=== PATIENT | female | born 2000 | race African-American/Black ===

== ENCOUNTER 2025-06-29 09:24 | Outpatient (AMB) | payer BC, SELFPAY ==
--- NOTE | 2025-06-29 09:28 | A.OFFPC_ITS ---
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 Accompanied by: Self / Same As Patient Allergies No Known Allergies Allergy (Verified 06/29/25 09:29) Medication List - Last Reconciled 06/29/25 by ARTEMIO Rodriguez No Known Home Meds Tobacco use date assessed: 06/29/25 Dental Screening Dental Screen Date: 06/29/25 Did you have a dental visit in the last 12 months?: Yes Did you have a dental problem in the last 6 months where you did not have access to dental care?: No Was dental information given to patient?: Patient has dentist HPI Contact Worker Lithography establish care HPI Details Patient is a 25-year-old female presenting to [facility]. Accompanied by her . Previous PCP: In [place], Pastora Andrews Last visit: 07/2024 Last PE: same Specialist:no [facility] Past medical history: Tonsillectomy years ago Medications: Family HX: DM, Mother-side, uncle has a bone generative, mother and grandmother has been affected as well. Problem: She had no concerns today. Labs ordered to be completed and return in 7 weeks for physical/lab review. [facility] Surgical History Hx of tonsillectomy Family History (Updated 06/29/25 @ 10:18 by ARTEMIO Rodriguez) Mother Diabetes mellitus Degenerative disorder of bone Maternal Uncle Degenerative disorder of bone Maternal Grandmother Degenerative disorder of bone Social History Household Members: Spouse Both parents involved: No Caregiver staying overnight: No Housing: Apartment Alcohol intake: never Patient Tobacco Use Status: Never used Tobacco e-Cigarette/Vaping Use: Never Used service: No Current occupational status: employed Hearing needs: No Vision needs: No Female Reproductive History Menstrual Date of last menstrual period: 06/06/25 control method: none Questionnaire PHQ-9 Over the last 2 weeks, how often have you been bothered by any of the following problems? 1. Little interest or pleasure in doing things: not at all 2. Feeling down, depressed, or hopeless: several days 3. Trouble falling or staying asleep, or sleeping too much: several days 4. Feeling tired or having little energy: several days 5. Poor appetite or overeating: not at all 6. Feeling bad about yourself - or that you are a failure or have let yourself or your family down: not at all 7. Trouble concentrating on things, such as reading the newspaper or watching television: not at all 8. Moving or speaking so slowly that other people could have noticed. Or the opposite - being so fidgety or restless that you have been moving around a lot more than usual: not at all 9. Thoughts that you would be better off or of hurting yourself in some way: not at all Total score: 3 Depression Screening Interpretation: Negative Depression Screening Done: Yes 75283 - PHQ-9 Billing: Yes Source: Developed by Drs. Fidel Ellison, Suyapa oCles, Hernandez Del Toro and colleagues, with an educational flakita from [employer]). Thrive Questionnaire Date Thrive assessed: 06/29/25 I am a: Patient What is your living situation today?: I choose not to answer this question Within the past 12 months, did the food you bought not last and you didn't have the money to get more?: I choose not to answer this question Within the past 12 months, did you worry whether your food would run out before you got money to buy more?: Never true Do you have trouble paying for medicines?: No Do you have trouble getting transportation to medical appointments?: No Do you have trouble paying your heating and electricity bill?: I choose not to answer this question Do you have trouble taking care of your child, family member or friend?: I choose not to answer this question Do you have trouble with day-to-day activities such as bathing, preparing meals, shopping, managing finances, etc.?: No Are you currently unemployed and looking for a job?: No Are you interested in more education?: Yes Please select the resources that you would like help with: Housing/Detention Currently or been in a relationship where the following occur: No concerns reported THRIVE Score: 0 AUDIT C Alcohol Use Questionnaire (AUDIT-C) 1. How often do you have a drink containing alcohol?: Never 2. How many drinks containing alcohol do you have on a typical day when you are drinking?: 1 or 2 3. How often do you have six or more drinks on one occasion?: Never Total Score: 0 BLAKE-7 AMB Questionnaire BLAKE-7 Date BLAEK - 7 assessed: 06/29/25 Feeling nervous, anxious, or on edge: 1 = Several days Not being able to stop or control worryin = Not at all Worrying too much about different things: 1 = Several days Trouble relaxin = Not at all Being so restless that it is hard to sit still: 0 = Not at all Becoming easily annoyed or irritable: 0 = Not at all Feeling afraid as if something awful might happen: 0 = Not at all Total BLAKE-7 score (0-4 normal; 5-9 mild; 10-14 moderate; 15-21 severe): 2 Source: Developed by Drs. Fidel Ellison, Suyapa Coles, Hernandez Del Toro and colleagues, with an educational flakita from [employer]). BLAKE-7 Assessment Billing BLAKE-7 Assessment Tool: BLAKE-7 Assessment 59736 Review of Systems Const Denies headache(s) Eyes Denies loss of vision ENT Denies vertigo, Denies dizziness, Denies headache(s) and Denies sore throat Card Denies chest pain, Denies leg edema and Denies lightheadedness Resp Denies cough, Denies hemoptysis and Denies wheezing GI Denies abdominal pain, Denies melena, Denies constipation, Denies diarrhea and Denies vomiting Denies urinary frequency, Denies dysuria and Denies urinary urgency Musc Denies arthralgias, Denies joint swelling, Denies numbness and Denies tingling Neuro Denies Abnormal speech present, Denies behavioral changes, Denies vertigo, Denies dizziness, Denies headache(s), Denies loss of vision, Denies memory loss, Denies numbness and Denies tingling Psych Denies anxiety, Denies behavioral changes, Denies depression, Denies memory loss and Denies panic attacks Dc/Lymph Denies easy bleeding and Denies easy bruising Aller/Immun Denies wheezing Physical exam (Primary Care) Vital Signs: Last Vital Signs Pulse 99 06/29/25 09:32 BP 116/70 06/29/25 09:32 Pulse Ox 99 06/29/25 09:32 Tobacco/Smoking Status: Tobacco use Status Tobacco use date assessed 06/29/25 06/29/25 09:39 Patient Tobacco Use Status Never used Tobacco 06/29/25 09:39 e-Cigarette/Vaping Use Never Used 06/29/25 09:39 PHQ-9: PHQ-9 Score PHQ-9: Total score 3 06/29/25 09:39 Depression Screening Interpretation: Negative Thrive Assessment: Date of Thrive Assessment Date Thrive assessed 06/29/25 06/29/25 09:39 Currently or been in a relationship where the following occur: No concerns reported Const General: healthy appearing, no acute distress, alert and awake Nutritional Appearance: well nourished Orientation/consciousness: oriented to person, oriented to place and oriented to time HENMT Ears: TM's normal bilaterally General nose exam: Normal nasal mucous membranes and turbinates present Eyes Conjunctivae: conjunctivae normal Sclerae: sclerae normal Pupils: Equal, round and reactive pupils present Neck Neck: Yes no lymphadenopathy and Yes no JVD Thyroid: Thyroid normal Carotids: no bruits Resp Effort & Inspection: normal respiratory effort and not tachypneic Auscultation: no crackles, no rales, no rhonchi and no wheezes Cardio Rate: regular rate Rhythm: regular rhythm Heart sounds: no murmurs and normal S1 and S2 GI Palpation (GI): Soft to palpation, nontender, no hepatomegaly and no splenomegaly Auscultation: normal bowel sounds Skin General skin exam: no rashes or lesions noted and dry skin Neuro General: oriented to person, oriented to place and oriented to time Cranial nerves: Yes Equal, round and reactive pupils present Speech: No Abnormal speech present Gait exam (Neuro): Normal gait present Motor exam (neuro): no tremor noted Extrem Right upper extremity: full ROM Left upper extremity: full ROM Right lower extremity: full ROM; no edema Left lower extremity: full ROM; no edema Psych Mental Status: mental status grossly normal Speech and movement: Normal speech and movement present Affect: normal affect Attitude: cooperative Thought process: Normal thought process present Coding Level of Care Code New Pt Level 3 (42116) Diagnoses Encounter to establish care with new provider Z76.89 Excessive cerumen in both ear canals H61.23 Additional Codes BLAKE-7 Assessment Billing - BLAKE-7 Assessment Tool: BLAKE-7 Assessment 71350 ([id number]) PHQ-9 - 86523 - PHQ-9 Billing: Yes ([id number]) Time Spent (min) 36 Assessment & Plan Assessment & Plan (1) Encounter to establish care with new provider: Code(s): Z76.89 - Persons encountering health services in other specified circumstances Category: Medical (2) Excessive cerumen in both ear canals: Code(s): H61.23 - Impacted cerumen, bilateral Category: Medical Plan The patient will undergo routine laboratory tests to assess kidney and liver function, as well as cholesterol levels. These tests require fasting, and the patient will return for a follow-up visit to review the results. For earwax buildup, the patient was advised on the use of [id number] ear drops to soften the wax, followed by warm water irrigation to remove it. Majority of cerumen build up was removed with lighted curette without any co ncerns of discomfort. Patient was informed and verbally consented to the use of an ambient scribe for clinic note documentation during this visit. Orders: Orders Lipid Panel Today Z00.00 - Encounter for general adult medical examination without abnormal findings TSH reflex Free T4 Today Z00.00 - Encounter for general adult medical examination without abnormal findings Vitamin D 25-OH Total Today Z00.00 - Encounter for general adult medical examination without abnormal findings Complete Blood Count Auto Diff Today Z00.00 - Encounter for general adult medical examination without abnormal findings Comprehensive Andreas. Panel Fast Today Z00.00 - Encounter for general adult medical examination without abnormal findings UA CC w/rflx Micro + Cult Today Z00.00 - Encounter for general adult medical examination without abnormal findings
[2025-06-29 09:32] VITALS: BP 116/70; PULSE 99; RESP 18; TEMP 37.6; O2SAT 99
== END 2025-06-29 10:12 | disposition home or self-care (01) ==
LOC: HO.HMCH 09:24
DX: Z76.89 Persons encountering health services in other specified circumstances (principal); H61.23 Impacted cerumen, bilateral

== ENCOUNTER → 2025-06-29 09:24 | Outpatient (BNVA) | payer BC, SELFPAY | DX: H61.23 Impacted cerumen, bilateral (principal); Z76.89 Persons encountering health services in other specified circumstances | CPT/HCPCS: 96127 ==

== ENCOUNTER 2025-07-31 07:57 | Outpatient (REF) | payer BC, SELFPAY ==
[2025-07-31 08:24] LABS: MANUAL DIFF FLAG NO
[2025-07-31 08:37] LABS: Hematocrit 37.5 % (37.0-47.0); Hemoglobin 11.9 g/dl (12.0-16.0); Imm Gran Abs Auto 0.01 X10*3/uL (0.00-0.03); Imm Gran Pct Auto 0.2 % (0.0-0.4); Lymphocytes Absolute Auto 2.0 X10*3/uL (1.2-4.9); Mean Corpuscular HGB Conc 31.7 g/dl (31.0-35.0); Mean Corpuscular Hemoglobin 29.5 pg (27.0-33.0); Mean Corpuscular Volume 92.8 fL (80.0-98.0); NRBC Abs Auto 0.000 X10*3/uL (0.0-0.012); NRBC Pct Auto 0.0 /100WBC (0.0-0.2); Platelet Count 254 X10*3/uL (160-400); Red Blood Count 4.04 X10*6/uL (4.20-5.50); White Blood Count 6.3 X10*3/uL (4.8-10.8)
[2025-07-31 09:33] LABS: Alanine Aminotransferase 18 U/L (0-31); Albumin Level 4.4 g/dL (3.5-5.0); Alkaline Phosphatase 54 U/L (39-117); Anion Gap 10 (12-20); Aspartate Amino Transferase 27 U/L (5-31); Blood Urea Nitrogen 11 mg/dL (9-16); Calcium 9.3 mg/dL (8.4-10.2); Carbon Dioxide 26 mmol/L (22-29); Chloride 108 mmol/L (96-108); Cholesterol 154 mg/dL (<200); Estimated Glomerular Filt Rate > 60; HDL Cholesterol 55 mg/dL (>40); Potassium 4.1 mmol/L (3.3-5.1); Sodium 140 mmol/L (135-145); Total Protein 7.0 g/dL (6.5-8.0); Triglycerides 54 mg/dL (<150)
[2025-07-31 09:36] LABS: Appearance Urine Clear; Glucose Urine UA Negative (Negative); PH 5.5 (5.0-9.0); Specific Gravity - Urine 1.015 (1.005-1.025); UMIC TRIGGER UACC YES
== END 2025-07-31 07:58 | disposition home or self-care (01) ==
LOC: HO.LAB 07:57
DX: Z00.00 Encounter for general adult medical examination without abnormal findings (principal); Z13.6 Encounter for screening for cardiovascular disorders
CPT/HCPCS: 36415; 80053; 80061; 81001; 81003; 82306; 84443; 85025

== ENCOUNTER 2025-08-16 09:55 | Outpatient (AMB) | payer BC, SELFPAY ==
[2025-08-16 09:58] VITALS: BP 120/72; PULSE 69; RESP 18; TEMP 36.4; O2SAT 95; BMI 25.9
--- NOTE | 2025-08-16 09:58 | MHC.PC.OV ---
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 Accompanied by: Self / Same As Patient Allergies No Known Allergies Allergy (Verified 08/16/25 10:08) Medication List - Last Reconciled 08/16/25 by ARTEMIO Rodriguez No Known Home Meds Tobacco use date assessed: 08/16/25 Dental Screening Dental Screen Date: 08/16/25 Did you have a dental visit in the last 12 months?: Yes Did you have a dental problem in the last 6 months where you did not have access to dental care?: No Was dental information given to patient?: Patient has dentist HPI annual physical/lab review HPI Details Dentist: up to date Eye: up to date Snellen: Right: Left: Corrected vision: yes, glasses STI screening:n/a Colonoscopy:n/a Pap Smaer:up to date PHQ-9: Flu:no COVID: x2 Tdap: not sure of the last time, will hold off now. Diet:regular Exercise:exercises regularly The patient is a 25-year-old female presenting with a wellness check-up and review of laboratory results. The patient was found to have anemia, which was noted to be mild and possibly related to her menstrual cycle, as the blood test was conducted during her period. There was also a trace of blood in her urine, which could be attributed to the timing of the test. The laboratory results indicated a slight deficiency in Vitamin D, which is common due to insufficient sunlight exposure, especially during winter months. The patient was advised to take Vitamin D3 supplements to mitigate this deficiency. The patient reported no significant changes in her health since the last visit and confirmed that her Pap smear is up to date. She has received two COVID-19 vaccinations and a tetanus shot in 2021, which is valid for ten years. The patient exercises regularly, either by walking or going to the gym, and is not on any special diet. She wears glasses and has not had a colonoscopy, as she is considered too young for routine screening unless symptomatic. The patient was advised on managing ear wax buildup to prevent dizziness and earache, which could occur if the wax reaches the eardrum. PFSH Surgical History Hx of tonsillectomy Family History Mother Diabetes mellitus Degenerative disorder of bone Maternal Uncle Degenerative disorder of bone Maternal Grandmother Degenerative disorder of bone Social History Household Members: Spouse Both parents involved: No Caregiver staying overnight: No Housing: Apartment Alcohol intake: never Patient Tobacco Use Status: Never used Tobacco e-Cigarette/Vaping Use: Never Used service: No Current occupational status: employed Hearing needs: No Vision needs: No Questionnaire Thrive Questionnaire Date Thrive assessed: 06/22/25 I am a: Patient What is your living situation today?: I choose not to answer this question Within the past 12 months, did the food you bought not last and you didn't have the money to get more?: I choose not to answer this question Within the past 12 months, did you worry whether your food would run out before you got money to buy more?: Never true Do you have trouble paying for medicines?: No Do you have trouble getting transportation to medical appointments?: No Do you have trouble paying your heating and electricity bill?: I choose not to answer this question Do you have trouble taking care of your child, family member or friend?: I choose not to answer this question Do you have trouble with day-to-day activities such as bathing, preparing meals, shopping, managing finances, etc.?: No Are you currently unemployed and looking for a job?: No Are you interested in more education?: Yes Please select the resources that you would like help with: Housing/Intermediate Currently or been in a relationship where the following occur: No concerns reported THRIVE Score: 0 BLAKE-7 AMB Questionnaire BLAKE-7 Date BLAKE - 7 assessed: 06/29/25 Source: Developed by Drs. Fidel Ellison, Suyapa Coles, Hernandez Del Toro and colleagues, with an educational flakita from [employer]. Review of Systems Const Denies headache(s) Eyes Denies loss of vision ENT Denies vertigo, Denies dizziness, Denies headache(s) and Denies sore throat Card Denies chest pain, Denies leg edema and Denies lightheadedness Resp Denies cough, Denies hemoptysis and Denies wheezing GI Denies abdominal pain, Denies melena, Denies constipation, Denies diarrhea and Denies vomiting Denies urinary frequency, Denies dysuria and Denies urinary urgency Musc Denies arthralgias, Denies joint swelling, Denies numbness and Denies tingling Neuro Denies Abnormal speech present, Denies behavioral changes, Denies vertigo, Denies dizziness, Denies headache(s), Denies loss of vision, Denies memory loss, Denies numbness and Denies tingling Psych Denies anxiety, Denies behavioral changes, Denies depression, Denies memory loss and Denies panic attacks Dc/Lymph Denies easy bleeding and Denies easy bruising Aller/Immun Denies wheezing Physical exam (Primary Care) Vital Signs: Last Vital Signs Temp 97.5 F 08/16/25 09:58 Pulse 69 08/16/25 09:58 Resp 18 08/16/25 09:58 BP 120/72 08/16/25 09:58 Pulse Ox 95 08/16/25 09:58 Oxygen Delivery Method Room Air 08/16/25 09:58 BMI result Body Mass Index 25.9 Tobacco/Smoking Status: Tobacco use Status Tobacco use date assessed 08/16/25 08/16/25 10:05 Patient Tobacco Use Status Never used Tobacco 08/16/25 10:05 e-Cigarette/Vaping Use Never Used 08/16/25 10:05 Thrive Assessment: Date of Thrive Assessment Date Thrive assessed 06/22/25 08/16/25 10:05 Currently or been in a relationship where the following occur: No concerns reported Const General: healthy appearing, no acute distress, alert and awake Nutritional Appearance: well nourished Orientation/consciousness: oriented to person, oriented to place and oriented to time HENMT Ears: Abnormal EAC present excessive cerumen bilateral and TM abnormal obstructed by cerumen bilateral General nose exam: Normal nasal mucous membranes and turbinates present Eyes Conjunctivae: conjunctivae normal Sclerae: sclerae normal Pupils: Equal, round and reactive pupils present Neck Neck: Yes no lymphadenopathy and Yes no JVD Thyroid: Thyroid normal Carotids: no bruits Resp Effort & Inspection: normal respiratory effort and not tachypneic Auscultation: no crackles, no rales, no rhonchi and no wheezes Cardio Rate: regular rate Rhythm: regular rhythm Heart sounds: no murmurs and normal S1 and S2 GI Palpation (GI): Soft to palpation, nontender, no hepatomegaly and no splenomegaly Auscultation: normal bowel sounds General: Yes no CVA tenderness Back/Spine/Pelvis Back: no CVA tenderness Skin General skin exam: no rashes or lesions noted and dry skin Neuro General: oriented to person, oriented to place, oriented to time and CN's II-XI intact bilaterally Cranial nerves: Yes Equal, round and reactive pupils present Speech: No Abnormal speech present Gait exam (Neuro): Normal gait present Motor exam (neuro): no tremor noted Deep tendon reflexes (DTR's): Right triceps reflex intensity grade: 2+, Left triceps reflex intensity grade: 2+, Rt Biceps (C5, C6): 2+, Left biceps reflex intensity grade: 2+, Right brachioradialis reflex intensity grade: 2+, Left brachioradialis reflex intensity grade: 2+, Right patellar reflex intensity grade: 2+ and Left patellar reflex intensity grade: 2+ Extrem Right upper extremity: full ROM Left upper extremity: full ROM Right lower extremity: full ROM; no edema Left lower extremity: full ROM; no edema Psych Mental Status: mental status grossly normal Speech and movement: Normal speech and movement present Affect: normal affect Attitude: cooperative Thought process: Normal thought process present Results Reviewed Results Reviewed: Laboratory Tests 07/31/25 07/31/25 08:19 08:23 WBC 6.3 RBC 4.04 L Hgb 11.9 L Hct 37.5 MCV 92.8 MCH 29.5 MCHC 31.7 RDW 13.4 Plt Count 254 MPV 11.1 Immature Gran % (Auto) 0.2 Sodium 140 Potassium 4.1 Chloride 108 Carbon Dioxide 26 Anion Gap 10 L BUN 11 Creatinine 0.74 Estimated GFR > 60 Fasting Glucose 96 Calcium 9.3 Total Bilirubin 0.4 AST 27 ALT 18 Alkaline Phosphatase 54 Total Protein 7.0 Albumin 4.4 Triglycerides 54 Cholesterol 154 LDL Cholesterol, Calc 89 HDL Cholesterol 55 25-OH Vitamin D Total 29.0 L TSH 0.38 Urine Color Yellow Urine Appearance Clear Urine pH 5.5 Ur Specific [place] 1.015 Urine Protein Negative Urine Glucose (UA) Negative Urine Ketones Negative Urine Blood Large (3+) H Urine Nitrite Negative Ur Leukocyte Esterase Trace H Urine RBC >20 H Urine WBC 0-5 Ur Squamous Epith Cells 0-2 Urine Bacteria None Seen Hyaline Casts 0-2 Coding Level of Care Code Est Pt Prev Care 18-39y([id number]) Diagnoses Annual physical exam Z00.00 Excessive cerumen in both ear canals H61.23 Anemia, unspecified type D64.9 Anemia type: unspecified type Vitamin D deficiency E55.9 Time Spent (min) 37 Assessment & Plan Assessment & Plan (1) Annual physical exam: Code(s): Z00.00 - Encounter for general adult medical examination without abnormal findings Category: Medical Plan: Preventative guidelines and recent labs reviewed with patient. Up to date on pap smear. (2) Excessive cerumen in both ear canals: Code(s): H61.23 - Impacted cerumen, bilateral Category: Medical Plan: Debrox ear drops recommended for soften cerumen. Explained the process of flushing ear with rubber bulb syringe that comes in the kit. (3) Anemia: Code(s): D64.9 - Anemia, unspecified Category: Medical Qualifiers: Anemia type: unspecified type Qualified Code(s): D64.9 - Anemia, unspecified Plan: Mild anemia, reports that she was on her periods during blood work. Will monitor cbc. (4) Vitamin D deficiency: Code(s): E55.9 - Vitamin D deficiency, unspecified Category: Medical Plan: Encouraged vitamin D3 25 mcg otc daily
== END 2025-08-16 10:28 | disposition home or self-care (01) ==
LOC: HO.HMCH 09:56
DX: Z00.00 Encounter for general adult medical examination without abnormal findings (principal); H61.23 Impacted cerumen, bilateral; D64.9 Anemia, unspecified; E55.9 Vitamin D deficiency, unspecified